=== PATIENT | female | born 1935 | race Caucasian/White ===

== ENCOUNTER → 2017-01-07 | Outpatient (CLI) | payer MEDICARE, BC ==
[~2017-01-07] MED LIST: ALPHAGAN P10 ML OP; ASPIRIN PO; HCTZ PO; LIPITOR PO; LUMAGEN; NAPROXEN PO; PREMARIN PO; PROTONIX PO; TARKA PO; TIMOPTIC2.5 ML OP; TRUSOPT5 ML OP
== END | disposition home or self-care (01) ==
LOC: CECH 13:37
DX: R01.1 Cardiac murmur, unspecified (principal); R06.00 Dyspnea, unspecified
CPT/HCPCS: 93306